=== PATIENT | female | born 1965 | race Caucasian/White ===

== ENCOUNTER 2016-12-20 21:03 | Emergency (ER) | payer OTHER ==
[~2016-12-20] VITALS: Ht 165.1 cm; Wt 68.0 kg
[2016-12-20 21:10] VITALS: BP 114/102
[2016-12-20] MEDS ORDERED: DEXAMETHASONE SOD PHOSPHATE 10 MG/ML VIAL IM STA (21:17)
[2016-12-20] MEDS ORDERED: IBUPROFEN 400 MG TABLET ONE (21:26)
[2016-12-20] MEDS ORDERED: DEXAMETHASONE SOD PHOSPHATE 10 MG/ML VIAL ONE (21:27)
[2016-12-20] MEDS ORDERED: AMOX/CLAVULANATE 875 MG TABLET ONE (21:27)
[2016-12-20] MEDS ORDERED: AMOX / CLAV 125 MG/5 ML BOTTLE PO ONE (21:30)
[2016-12-20] MEDS ORDERED: IBUPROFEN SUSP 100 MG/5 ML UDC PO ONE (21:30)
== END 2016-12-20 21:52 | disposition home or self-care (01) ==
LOC: ER 21:03
DX: J03.80 Acute tonsillitis due to other specified organisms (principal); B96.89 Other specified bacterial agents as the cause of diseases classified elsewhere
CPT/HCPCS: 96372; 99283; A4606; J1100; Z7610

== ENCOUNTER 2017-10-21 12:13 | Emergency (ER) | payer OTHER ==
[~2017-10-21] VITALS: Ht 170.2 cm; Wt 63.5 kg
--- NOTE | 2017-10-21 12:29 | NUR ---
PT BIB [facility] C/O N/V/D SINCE LAST NIGHT X3 EPSIDOES EACH WITHOUT BLOOD IN STOOL OR VOMIT. DENIES ABD PAIN BUT REPORTS GENERALIZED BODY SORENESS AND ACHES 04/17. AFEBRILE. RESP EVEN UNLABORED. SKIN WARM, DRY. HAS PMD BUT CAN'T REMEMBER THE NAME. IN ER BED 08.
[2017-10-21] MEDS ORDERED: ONDANSETRON HCL/PF 4 MG/2 ML VIAL ONE (12:41)
[2017-10-21] MEDS ORDERED: KETOROLAC TROMETHAMINE INJ 30 MG/ML VIAL ONE (12:41)
[2017-10-21] MEDS ORDERED: KETOROLAC TROMETHAMINE INJ 30 MG/ML VIAL IV ONE (13:00)
[2017-10-21] MEDS ORDERED: IV NS 0.9% 1,000 ML BAG IV ONE (13:00)
[2017-10-21] MEDS ORDERED: ONDANSETRON HCL/PF 4 MG/2 ML VIAL IVP ONE (13:00)
--- NOTE | 2017-10-21 13:44 | NUR ---
IV removed. Catheter intact and site benign. Pressure and 4x4 applied to site. No bleeding noted. Patient discharged to home in stable condition. Written and verbal after care instructions given. Patient verbalizes understanding of instruction.
[2017-10-21 13:45] VITALS: BP 136/81
== END 2017-10-21 13:45 | disposition home or self-care (01) ==
LOC: ER 12:15
DX: E86.0 Dehydration (principal); B34.9 Viral infection, unspecified; R19.7 Diarrhea, unspecified; R11.2 Nausea with vomiting, unspecified
CPT/HCPCS: 96361; 96374; 96375; 99284; A4606; J1885; J2405; J7030; Z7610